=== PATIENT | female | born 1955 | race Caucasian/White ===

== ENCOUNTER 2019-04-01 08:09 | Inpatient (IN) ==
--- NOTE | 2019-03-07 13:44 | PAT Medication Instructions ---
Medication Instructions Date of Service March 07, 2019 Home Medications Calcium, Zinc And Magnesium 1 tab PO QAM Multi Vitamin 1 tab PO QAM apixaban [Eliquis] 5 mg PO BID cetirizine [Zyrtec] 1 tab PO DAILY chlorthalidone 12.5 - 25 mg PO UD escitalopram oxalate [Lexapro] 5 mg PO HS gabapentin 300 mg PO HS lactobacillus combination no.4 1 dose PO TIDM losartan 100 mg PO HS metoprolol succinate [Toprol XL] 12.5 mg PO QAM montelukast [Singulair] 10 mg PO DAILY ASK your prescriber and surgeon apixaban [Eliquis] 5 mg PO BID (IN ORDER FOR SPINAL ANESTHESIA, ELIQUIS NEEDS TO BE STOPPED 72 HOURS/3 DAYS PRIOR TO SURGERY-- PLEASE CHECK IF THIS IS OKAY WITH DOCTOR THAT PRESCRIBES THIS) DO NOT take the morning of surgery Calcium, Zinc And Magnesium 1 tab PO QAM Multi Vitamin 1 tab PO QAM cetirizine [Zyrtec] 1 tab PO DAILY chlorthalidone 12.5 - 25 mg PO UD lactobacillus combination no.4 1 dose PO TIDM montelukast [Singulair] 10 mg PO DAILY Take morning of surgery With a small sip of water, OTHERWISE NOTHING TO EAT OR DRINK AFTER MIDNIGHT: metoprolol succinate [Toprol XL] 12.5 mg PO QAM Take evening before surgery escitalopram oxalate [Lexapro] 5 mg PO HS gabapentin 300 mg PO HS lactobacillus combination no.4 1 dose PO TIDM losartan 100 mg PO HS Other Notes If you have any questions please call us at [phone] or [phone] or [phone] or [phone]
--- NOTE | 2019-03-08 13:30 | Anesthesiology Consultation ---
Date of Service March 08, 2019 Assessment & Plan (1) Encounter for pre-operative examination: - Cardio: 03/23/19: "I see no cardiac contraindication to proceeding on with the planned orthopedic procedure." - Patient advised that in order for spinal anesthesia, will need to hold Eliquis 72 hours prior to surgery (she states already told to hold 72 hours prior to surgery per prescriber/surgeon). - Possible difficult intubation due to anatomy. Chart Review Chart Review: Acceptable Risk for Surgery and Patient seen in Pre Admission Testing Teaching & Discussion Pre-Anesthesia Teaching/Discussion Notes: Instructed NPO after midnight before surgery,except medications with 15 cc of water. Medication instructions provided according to the PAT guidelines. History Surgery Operation Date: 04/01/19 10:20 Proposed Procedures p Left Anterior Total Hip Replacement - Reynaldo Aguilera, Height/Weight Height: 5 ft 4 in Weight: 73.9 kg Allergies Allergy/AdvReac Type Severity Reaction Status Date / Time latex Allergy Unknown RASH, Verified 03/07/19 13:40 PRURITIS Penicillins Allergy Unknown ANAPHYLACTIC Verified 03/01/19 09:50 SHOCK peanut AdvReac Unknown INDEGESTION Verified 03/07/19 13:40 ISSUES perfume AdvReac Unknown Headache Verified 03/07/19 13:40 ENVIRONMENTAL ALLERGIES Allergy Unknown HEADACHE, Uncoded 03/01/19 10:26 "FEEL MISERABLE" MULTIPLE FOOD AdvReac Unknown INDIGESTION Uncoded 03/08/19 13:27 PROBLEMS/GAS/DIARRHEA Medications Home Medications Medication Instructions Recorded Confirmed Last Taken Calcium, Zinc And Magnesium 1 tab PO QAM 03/01/19 03/01/19 03/01/19 Multi Vitamin 1 tab PO QAM 03/01/19 03/01/19 03/01/19 apixaban [Eliquis] 5 mg PO BID 03/01/19 03/01/19 03/01/19 cetirizine [Zyrtec] 1 tab PO DAILY 03/01/19 03/01/19 Unknown chlorthalidone 12.5 - 25 mg PO UD 03/01/19 03/01/19 Unknown escitalopram oxalate [Lexapro] 5 mg PO HS 03/01/19 03/01/19 02/28/19 gabapentin 300 mg PO HS 03/01/19 03/01/19 02/28/19 lactobacillus combination no.4 1 dose PO TIDM 03/01/19 03/01/19 Unknown [Probiotic] losartan 100 mg PO HS 03/01/19 03/01/19 02/28/19 metoprolol succinate [Toprol XL] 12.5 mg PO QAM 03/01/19 03/01/19 03/01/19 montelukast [Singulair] 10 mg PO DAILY 03/01/19 03/01/19 Unknown Past Medical History Medical History DVT (deep venous thrombosis) MULTIPLE; MOST RECENT 2016; + HETEROZYGOUS PROTHROMBIN GENE MUTATION Depression History of pulmonary embolism MULTIPLE; 2016 Hypertension Kidney disease STAGE III Prothrombin gene mutation HETEROZYGOUS Past Family History Family History Mother History of lymphoma Past Surgical History Surgical History History of cardiac cath YEARS AGO= NO STENTS History of colonoscopy History of dilation and curettage History of sinus surgery Past Anesthesia History No Hx of Anesthesia Complications and No Family Hx of Anesthesia Complications History of PONV No Motion Sickness Screening History of Motion Sickness: No Social History Smoking Status: Current every day smoker tobacco type: cigarettes Smoking cigarettes per day: 1PPD X 30+ YEARS Do You Dip or Chew Tobacco: No Hx Alcohol Use: No Hx Substance Use: No substance use type: does not use Exercise / Class Metabolic Activity III < 4 Walking/Shop/Light housework Review of Systems Mild reflux. Patient denies chest pain, shortness of breath, cough, wheezing, palpitations. Physical Exam Vital Signs VITALS BP 120/74 P 65 TEMP 98.7 SP02 96%RA RESP 20 PHYSICAL Full neck and c-spine range of motion. Full TMJ range of motion. TMD 3 finger breaths Mallampati Score 4 (small oral opening) Dentition: intact, caps on sides/molars Lungs: clear throughout to auscultation Cardiac: regular rate and rhythm, no murmurs noted Spine: normal Carotid arteries: negative bruit Extremities: no edema Testing Electrocardiogram Date: 03/08/19 Findings: + NSR @ (64) Chest X-Ray Date: 03/08/19 Findings: + NAD Echocardiogram Date: 03/23/19 Normal left ventricular wall motion and ejection fraction in the range of 55% and trace to mild CA, mild TI. Stress Test Date: 03/23/19 Type: nuclear (LEXISCAN) Normal myocardial perfusion SPECT images without evidence of pharmacologically induced ischemia. LVEF 71%. Laboratory Results 03/08/19 13:50 03/08/19 13:50 PT 10.3 Seconds (9.0-12.0) 03/08/19 13:50 INR 1.0 (0.9-1.1) 03/08/19 13:50 APTT 26.6 Seconds (21.0-31.0) 03/08/19 13:50 Blood Type B Negative 03/08/19 13:50 Antibody Screen NEGATIVE 03/08/19 13:50
--- NOTE | 2019-03-08 14:11 | XRay Report ---
XR chest Pre-admission PA/Lat CLINICAL HISTORY: pat preoperative evaluation COMPARISON STUDY: No previous studies for comparison. FINDINGS: The bones soft tissues and hemidiaphragms are normal. The cardiomediastinal silhouette is n ormal. The lungs are clear. The pulmonary vasculature is normal. IMPRESSION: Negative chest. The above report was generated using voice recognition software. It may contain grammatical, syntax or spelling errors. Electronically signed by: Danyel Eckert M.D. 03/08/2019 2:09 PM
[2019-03-08 14:23] LABS: Basophils # (auto) 0.02 K/uL (0-0.2); Basophils % (auto) 0.4 %; Eosinophils # (auto) 0.15 K/uL (0-0.5); Eosinophils % (auto) 2.6 %; Hematocrit (blood only) 38.1 % (37-47); Hemoglobin 12.9 g/dL (12.0-16.0); Immature Granulocytes # (auto) 0.01 K/uL (0.00-0.02); Immature Granulocytes % (auto) 0.2 %; Lymphocytes # (auto) 2.08 K/uL (1.2-3.4); Lymphocytes % (auto) 36.6 %; Mean Corpuscular Hgb Conc 33.9 g/dL (32-36); Mean Corpuscular Volume 85.4 fL (80-100); Mean Platelet Volume 10.1 fL (7.4-10.4); Monocytes # (auto) 0.37 K/uL (0.11-0.59); Monocytes % (auto) 6.5 %; Neutrophils # (auto) 3.06 K/uL (1.4-6.5); Neutrophils % (auto) 53.7 %; Platelet Count 180 K/uL (130-400); RDW Coefficient of Variation 12.9 % (11.5-14.5); RDW Standard Deviation 40.4 fL (36.4-46.3); Red Blood Count 4.46 M/uL (4.2-5.4); White Blood Count 5.69 K/uL (4.8-10.8)
[2019-03-08 14:35] LABS: Partial Thromboplastin Time 26.6 Seconds (21.0-31.0); Prothrombin Time 10.3 Seconds (9.0-12.0)
[2019-03-08 14:37] LABS: BUN Creatinine Ratio 18.2 (10-20); Calcium 8.9 mg/dl (8.5-10.1); Creatinine Clr Calc Pharmacy 55.1 ml/min; Est GFR (Non-African American) 57.8; Potassium 3.3 mmol/L (3.5-5.1)
--- NOTE | 2019-03-29 15:33 | History & Physical Report ---
Date of Service March 29, 2019 Assessment & Plan (1) Osteoarthritis of left hip: We will proceed with a left anterior total hip arthroplasty. Postoperatively she will be placed back on her Eliquis for DVT prophylaxis. She will be kept overnight in the hospital for postoperative medical management. She plans to use energy physical therapy upon discharge. Present on Admission?: Yes History of Present Illness Chief Complaint: Primary osteoarthritis of the left hip Primary Care Provider: Carlos Ndiaye is a pleasant 63-year-old female who is been dealing with chronic increasing left hip and groin pain. Is getting to the point where she is having trouble ambulating. X-rays and clinical examination do show advanced osteoarthritis of the left hip. After failing conservative treatment, she has elected to proceed with a left anterior total hip arthroplasty. Allergies Allergy/AdvReac Type Severity Reaction Status Date / Time latex Allergy Unknown RASH, Verified 03/07/19 13:40 PRURITIS Penicillins Allergy Unknown ANAPHYLACTIC Verified 03/01/19 09:50 SHOCK peanut AdvReac Unknown INDEGESTION Verified 03/07/19 13:40 ISSUES perfume AdvReac Unknown Headache Verified 03/07/19 13:40 ENVIRONMENTAL ALLERGIES Allergy Unknown HEADACHE, Uncoded 03/01/19 10:26 "FEEL MISERABLE" MULTIPLE FOOD AdvReac Unknown INDIGESTION Uncoded 03/08/19 13:27 PROBLEMS/GAS/DIARRHEA Home Medications Home Medications Medication Instructions Recorded Confirmed Type Calcium, Zinc And Magnesium 1 tab PO QAM 03/01/19 03/01/19 History Multi Vitamin 1 tab PO QAM 03/01/19 03/01/19 History apixaban [Eliquis] 5 mg PO BID 03/01/19 03/01/19 History cetirizine [Zyrtec] 1 tab PO DAILY 03/01/19 03/01/19 History chlorthalidone 12.5 - 25 mg PO UD 03/01/19 03/01/19 History escitalopram oxalate [Lexapro] 5 mg PO HS 03/01/19 03/01/19 History gabapentin 300 mg PO HS 03/01/19 03/01/19 History lactobacillus combination no.4 1 dose PO TIDM 03/01/19 03/01/19 History [Probiotic] losartan 100 mg PO HS 03/01/19 03/01/19 History metoprolol succinate [Toprol XL] 12.5 mg PO QAM 03/01/19 03/01/19 History montelukast [Singulair] 10 mg PO DAILY 03/01/19 03/01/19 History Past Med/Surg History Medical History DVT (deep venous thrombosis) MULTIPLE; MOST RECENT 2016; + HETEROZYGOUS PROTHROMBIN GENE MUTATION Depression History of pulmonary embolism MULTIPLE; 2016 Hypertension Kidney disease STAGE III Prothrombin gene mutation HETEROZYGOUS Surgical History History of cardiac cath YEARS AGO= NO STENTS History of colonoscopy History of dilation and curettage History of sinus surgery Family History Mother History of lymphoma Social History Preferred Language: [place] Communication Ability: Effective Chimney Builder Required: No Beliefs That Will Affect Care: None Current Living Situation: Alone Other Information That Helps Us Care for You: No Feels Safe at Home: Yes Smoking Status: Current every day smoker Tobacco Type: cigarettes Cigarettes Per Day: 1PPD X 30+ YEARS Do You Dip or Chew Tobacco: No Tobacco Cessation Education Requested by Patient: No Hx Alcohol Use: No Hx Substance Use: No Review of Systems All systems reviewed & are unremarkable except as noted in HPI & below Physical Exam Constitutional: WD/WN, vitals as above Eyes: PERRL, conjunctivae normal, anicteric sclerae ENMT: external ear and nose normal, oropharynx normal Neck: trachea midline, no thyromegaly Respiratory: normal respiratory effort Cardiovascular: RRR, no murmur, no edema Gastrointestinal (Abdomen): normal bowel sounds, soft, nontender, no hepatosplenomegaly Musculoskeletal: Physical examination of the left hip reveals decreased range of motion with flexion, internal and external rotation. There is significant groin pain with forced internal rotation of the hip his leg lengths are essentially equal. Psychiatric: A+Ox3, euthymic affect Results & Data Diagnostic Findings Radiographs of the left hip and pelvis demonstrate advanced osteoarthritis with joint space narrowing osteophyte formation and [id number] articulation.
[~2019-04-01 08:09] MED LIST: ACETAMINOPHEN 500 MG TAB PO SCH; BUPIVACAINE 0.5 % 5 MG/1 ML PF 10ML VIAL ONE; FAMOTIDINE 20 MG TAB PO SCH; GABAPENTIN 300 MG x 2 PO SCH; LIDOCAINE HCL 2% 2 ML VIAL/AMP(20MG/ML) INFIL ONE; LR 500ML BOLUS, THEN 15ML/HR IV SCH; LR 60ML/HR IV SCH; MIDAZOLAM HCL 1 MG/ML 2ML VIAL ONE; PROPOFOL IV EMULSION 10 MG/ML 20 ML VIAL IV ONE; ROPIVACAINE 0.5% HCL/PF 150 MG, BUPIVACAINE 0.5% MPF 30 ML, EPINEPHrine 30MG/30ML (OR U... INFIL SCH; TRANEXAMIC ACID 1,000 MG **IV Intra-op IV SCH; TRANEXAMIC ACID 1,000 MG **IV Pre-op IV SCH; VANCOMYCIN HCL 1,000 MG/270 ML BAG IV SCH; fentaNYL citrate 100 MCG/2 ML VIAL ONE
--- OUTSIDE RECORDS SUMMARY | 2019-04-01 08:14 | External Medical Summary | Continuity of Care Document ---
:1955 Author Name Jey Arriaga Address Unavailable Unavailable , Care Team Providers Name Role Phone Wolfgang YEBOAH M.D., PDoyle Unavailable [email or web address] Unavailable Unavailable Assessments Assessed Problems:Cervical radiculopathyUlnar neuropathy of both upper extremitiesCarpal tunnel syndrome, bilateral Problems Cervical radiculopathy (723.4) (M54.12) Ulnar neuropathy of both upper extremities (354.2) (G56.23) Carpal tunnel syndrome, bilateral (354.0) (G56.03) Allergies and Adverse Reactions Allergy history not documented Medications Medications not documented Procedures Procedures not documented Immunizations Immunizations not documented Plan of Treatment Planned Observations Planned Goals not documented Results No Known Results Results not documented Encounters Appointment; Jaylen Goss III, M.D. 22-Apr-2018 16:00 Encounter Diagnosis: Problem not documented
[2019-04-01] MEDS ORDERED: ATROPINE SULFATE 0.1 MG/ML 10ML SYR IV PRN (08:39)
[2019-04-01] MEDS ORDERED: ONDANSETRON INJ 2 MG/ML 2 ML VIAL IV PRN ×2 (08:39→13:24)
[2019-04-01] MEDS ORDERED: PHENYLEPHRINE 100MCG/ML 5ML SYR IV PRN (08:39)
[2019-04-01] MEDS ORDERED: PROMETHAZINE HCL 12.5 MG in SODIUM CHLORIDE 0.9% 50 ML IV PRN (08:39)
[2019-04-01] MEDS ORDERED: HYDROmorphone INJ 1 MG/ML SYRINGE IV PRN (08:39)
[2019-04-01] MEDS ORDERED: fentaNYL citrate 100 MCG/2 ML VIAL IV PRN (08:39)
[2019-04-01] MEDS ORDERED: ePHEDrine sulfate 50 MG/ML AMP IV PRN (08:39)
--- NOTE | 2019-04-01 08:41 | History & Physical Bridge Note ---
Date of Service April 01, 2019 History & Physical Bridge Note I have examined the patient, reviewed the History & Physical and in the interval since the performance of the History & Physical I have noted the following changes of clinical significance: no changes noted
[2019-04-01] MEDS ORDERED: ORTHO JOINT ANESTHETIC ONE (09:00)
[2019-04-01] MEDS ORDERED: POVIDONE-IODINE OP SOLN 30 ML BTL ONE (09:01)
[2019-04-01] MEDS ORDERED: ONDANSETRON INJ 2 MG/ML 2 ML VIAL ONE (10:17)
--- NOTE | 2019-04-01 11:39 | Operative Report ---
Post Operative Report Pre & Post Diagnosis Operation Date: 04/01/19 10:20 Pre-Op Diagnosis: Left Hip Degenerative Joint Disease Post-Op Diagnosis: Left Hip Degenerative Joint Disease Procedure Operation Date: 04/01/19 10:20 Actual Procedures p Left Anterior Total Hip Replacement(Left) - Reynaldo Aguilera DO Surgeon Reynaldo Aguilera DO B[employer]er Operators Supervisor Reynaldo Huang PAC Estimated Blood Loss 200 Findings Consistent with Post-Op Diagnosis Specimens Left femoral head Complications none Disposition Disposition: Recovery Room Indications Patient is a pleasant 63-year-old female who presented my office with chronic increasing left hip and groin pain. X-rays and clinical examination have been diagnostic for primary also arthritis of the left hip. After failing conservative treatment, she elected proceed with a left anterior total hip arthroplasty. Description of Procedure Implants used Biomet Taperloc total hip arthroplasty system with a size 11 standard offset Taperloc stem, a 52 mm G7 cup with a 25mm screw, an E1 polyethylene liner, a 36 mm ceramic head with a -3 neck. Patient arrived at the hospital for the above procedure. They were seen in the preoperative holding area and the operative extremity was identified and signed. They were given a spinal anesthetic. They were given a preoperative antibiotic and TXA. They were taken back To the operating room and laid on the table in the supine position. The leg was brought out through a Puristst leg positioner. The hip was then prepped and draped in sterile fashion. A timeout was done and the patient in upper extremities properly identified. An anterior approach was used. Dissection was taken down through the fascia and the tensor muscle belly was retracted laterally and the rectus was retracted medially. The circumflex vessels were identified and ligated. The capsule was then incised and tagged for later repair. The femoral neck was then cut and the femoral head was removed. The acetabulum was exposed. Time was spent doing a complete circumferential labral release. Sequential reaming of the acetabulum up to a size 51 reamer was done. Final reamings were done under fluoroscopy to ensure appropriate version. A Biomet 52 mm G7 cup was then impacted into place. A single 25 mm screw was placed. The E1 polyethylene liner was then snapped into place. Surrounding soft tissues were then injected with 100 cc of an orthopedic pain control cocktail. The proximal femur was then exposed. Sequential broaching up to a size 11 broach was done. Off that broach a size 36 head with a -3 neck was trialed. The hip was reduced and fluoroscopic images showed anatomic alignment of the implants in acceptable length. The broach was removed. The final size 11 standard offset Taperloc stem was then impacted into place. A ceramic 36 mm head with a -3 neck was then impacted into place in the hip was reduced. Final fluoroscopic images showed anatomic reduction of the hip. The capsule was then closed with #1 Vicryl suture. A dilute betadyne lavage was then done for 3 minutes. The joint was then irrigated with normal saline solution. The fascia was closed with #1 PDS suture. Skin was closed with 2-0 Vicryl, kashif, and a Jeane VAC dressing. The patient was then transferred to a hospital bed and taken to the post anesthesia care unit in stable condition. They tolerated the procedure well. I attest to the content of the Intraoperative Record and any orders documented therein. Any exceptions are noted below.
--- NOTE | 2019-04-01 11:44 | Fluoroscopy Report ---
FL hip LT 1V CLINICAL HISTORY: 63 years-old Female presenting with LT ANTERIOR HIP ARTHOPLASTY. TECHNIQUE: 2 fluoroscopic image(s) recorded as part of an intraoperative procedure. COMPARISON: 01/21/2019. FINDINGS/IMPRESSION: Postsurgical changes of total left hip arthroplasty new from prior. Please see surgical report for further details. Fluoroscopy dosage (mGy): 3.13. Fluoroscopy time: 30.8 seconds. Number or time of high level fluoroscopy (HLF), digital spot, or digital subtraction images: 0. Electronically signed by: Jay Gorman M.D. 04/01/2019 11:43 AM
--- NOTE | 2019-04-01 12:28 | XRay Report ---
XR hip 1V LT w pelvis CLINICAL HISTORY: IN PACU - A/P PELVIS and LATERAL HIP COMPARISON: None. DISCUSSION: Anatomic alignment post total left hip arthroplasty. Expected soft tissue postoperative c hange IMPRESSION: Anatomic alignment post total left hip arthroplasty. The above report was generated using voice recognition software. It may contain grammatical, syntax or spelling errors. Electronically signed by: Danyel Eckert M.D. 04/01/2019 12:26 PM
--- NOTE | 2019-04-01 12:59 | Anesthesiology Progress Note ---
Date of Service April 01, 2019 Anesthesia Post Procedure Vital Signs Vital Signs: Temp Pulse Pulse Resp BP Pulse Ox 04/01/19 12:50 36.5 C 58 L 13 108/61 98 04/01/19 12:40 36.5 C 59 L 15 117/65 98 04/01/19 12:30 59 L 19 118/58 L 98 04/01/19 12:20 57 L 18 123/65 100 04/01/19 12:10 61 17 114/67 100 04/01/19 12:00 57 L 15 111/65 100 04/01/19 11:53 36.4 C L 60 17 112/60 99 04/01/19 08:57 36.6 C 65 20 135/77 97 Pain Intensity Left Hip: Pain Intensity: 0 Transfer of Care Handoff Completed per policy Notes Mental Status: alert / awake / arousable Patient Amnestic to Procedure: Yes Nausea / Vomiting: adequately controlled Pain: adequately controlled Airway Patency, RR, SpO2: stable & adequate BP & HR: stable & adequate Neuraxial Anesthesia: was administered and sensory block is resolving Anesthetic Complications: no major complications apparent
[2019-04-01] MEDS ORDERED: MAGNESIUM HYDROXIDE SUSP 30 ML UDC PO PRN (13:24)
[2019-04-01] MEDS ORDERED: METOCLOPRAMIDE HCL INJ 5 MG/ML 2 ML VIAL IV PRN (13:24)
[2019-04-01] MEDS ORDERED: BISACODYL 10 MG SUPP PR PRN (13:24)
[2019-04-01] MEDS ORDERED: OXYCODONE HCL IR 5 MG TAB (IMMEDIATE RELEASE) PO PRN (13:24)
[2019-04-01] MEDS ORDERED: HYDROmorphone INJ 0.5 MG/0.5 ML SYR IV PRN (13:24)
[2019-04-01] MEDS ORDERED: NALOXONE HCL 0.4 MG/1 ML VIAL/CARP IV PRN (13:24)
[2019-04-01] MEDS ORDERED: SODIUM CHLORIDE 0.9% 1000ML 1,000 ML IV SCH (14:15)
[2019-04-01] MEDS: ACETAMINOPHEN 500 MG TAB PO SCH ×2 (16:16→23:04)
[2019-04-01] MEDS: CLINDAMYCIN 600 MG in DEXTROSE 5% 50 ML IV SCH ×2 (16:24→23:04)
[2019-04-01] MEDS: DOCUSATE SODIUM 100 MG CAP PO SCH (19:46)
[2019-04-01] MEDS ORDERED: NICOTINE 21 MG/24 HR TDSY TD SCH (20:00)
[2019-04-01] MEDS ORDERED: VANCOMYCIN HCL 1,000 MG in SODIUM CHLORIDE 0.9% 250 ML IV SCH (20:00)
[2019-04-01] MEDS ORDERED: MONTELUKAST SODIUM 10 MG TABLET PO SCH (21:00)
[2019-04-01] MEDS ORDERED: APIXABAN 5 MG TABLET PO SCH (21:00)
[2019-04-01] MEDS ORDERED: SENNA 8.6 MG TAB PO SCH (21:00)
[2019-04-01] MEDS ORDERED: GABAPENTIN 300 MG CAP PO SCH (21:00)
[2019-04-01] MEDS ORDERED: LOSARTAN POTASSIUM 50 MG TAB PO SCH (21:00)
[2019-04-01] MEDS ORDERED: ESCITALOPRAM OXALATE 10 MG TAB PO SCH (21:00)
[2019-04-02] MEDS ORDERED: Nursing to Pharmacy Communication ONE (05:32)
[2019-04-02] MEDS: ACETAMINOPHEN 500 MG TAB PO SCH (06:26)
[2019-04-02 06:35] LABS: Basophils # (auto) 0.01 K/uL (0-0.2); Basophils % (auto) 0.1 %; Eosinophils # (auto) 0.01 K/uL (0-0.5); Eosinophils % (auto) 0.1 %; Hematocrit (blood only) 32.8 % (37-47); Immature Granulocytes # (auto) 0.02 K/uL (0.00-0.02); Immature Granulocytes % (auto) 0.2 %; Lymphocytes # (auto) 1.51 K/uL (1.2-3.4); Lymphocytes % (auto) 15.9 %; Mean Corpuscular Hgb Conc 33.5 g/dL (32-36); Mean Corpuscular Volume 85.6 fL (80-100); Monocytes # (auto) 0.72 K/uL (0.11-0.59); Monocytes % (auto) 7.6 %; Neutrophils # (auto) 7.23 K/uL (1.4-6.5); Neutrophils % (auto) 76.1 %; Platelet Count 123 K/uL (130-400); RDW Coefficient of Variation 12.9 % (11.5-14.5); RDW Standard Deviation 40.3 fL (36.4-46.3); Red Blood Count 3.83 M/uL (4.2-5.4)
[2019-04-02 07:07] LABS: BUN Creatinine Ratio 20.8 (10-20); Calcium 8.2 mg/dl (8.5-10.1); Creatinine Clr Calc Pharmacy 39.7 ml/min; Est GFR (African American) 45.1; Est GFR (Non-African American) 38.9; Potassium 3.6 mmol/L (3.5-5.1)
--- NOTE | 2019-04-02 07:18 | Orthopedic Progress Note ---
Date of Service April 02, 2019 Assessment & Plan (1) Osteoarthritis of left hip: Overall she is doing very well. She does not have much pain in the hip. She will be seen by physical therapy this morning for ambulation and range of motion exercises. She is stable for discharge to home later today. She plans to use energy physical therapy when she gets home. Her son is going to be staying with her to help take care of her. Will use oxycodone as needed for pain control. She will continue her Eliquis for DVT prophylaxis. She will follow-up with orthopedics in 2 weeks. Present on Admission?: Yes Subjective Zelda was seen and examined at bedside this morning. Overall she is doing very well. She is not having much pain in the left hip. She is been up and ambulating to the bathroom. She has no complaints. Physical Exam Musculoskeletal: On physical examination of the left hip, the Jeane VAC dressing is to suction. Her leg lengths are equal. She is active dorsiflexion and plantarflexion of her left ankle. Sensations intact throughout. Results & Data Vital Signs (Past 12 Hours) Vital Signs Temp Pulse Pulse Resp BP Pulse Ox 04/02/19 03:54 36.5 C 62 14 116/64 96 04/01/19 23:05 36.6 C 68 16 118/63 93 04/01/19 19:45 64 103/59 L 04/01/19 19:26 36.3 C L 65 18 110/57 L 95 Laboratory Results H & H 03/08/19 04/02/19 Range/Units 13:50 06:26 Hgb 12.9 11.0 L (12.0-16.0) g/dL Hct 38.1 32.8 L (37-47) % Coagulation 03/08/19 Range/Units 13:50 INR 1.0 (0.9-1.1) Diagnostic Findings Postoperative x-rays of the left hip show the prosthesis to be in anatomic alignment without any evidence of fracture, dislocation, or loosening.
--- NOTE | 2019-04-02 07:19 | Discharge Summary ---
Date of Service April 02, 2019 Admission HPI Per Admitting Provider Zelda is a pleasant 63-year-old female who is been dealing with chronic increasing left hip and groin pain. Is getting to the point where she is having trouble ambulating. X-rays and clinical examination do show advanced osteoarthritis of the left hip. After failing conservative treatment, she has elected to proceed with a left anterior total hip arthroplasty. Specialty Data Orthopedic H & H 03/08/19 04/02/19 Range/Units 13:50 06:26 Hgb 12.9 11.0 L (12.0-16.0) g/dL Hct 38.1 32.8 L (37-47) % Coagulation 03/08/19 Range/Units 13:50 INR 1.0 (0.9-1.1) Discharge Data Consultations 04/02/19 08:00 Consult Case Management - Discharge Planning Routine Procedures Performed Operation Date: 04/01/19 10:20 Actual Procedures p Left Anterior Total Hip Replacement(Left) - Reynaldo Aguilera DO Hospital Course (1) Osteoarthritis of left hip: On April 01, 2019 Zelda arrived at [facility] and underwent a left anterior total hip arthroplasty without complication. She had a spinal anesthetic. Postoperatively she was started back on her Eliquis for DVT prophylaxis and discharged to general orthopedic floors. Her hospital course was uneventful. On postop day #1 her H&H was stable and her pain was well controlled. She was able to ambulate well with physical therapy. She was then discharged to home with [facility]. She will follow-up with orthopedics in 2 weeks. Discharge Instructions Home Medications Medication Instructions Recorded Confirmed Calcium, Zinc And Magnesium 1 tab PO QAM 03/01/19 04/01/19 Multi Vitamin 1 tab PO QAM 03/01/19 04/01/19 apixaban [Eliquis] 5 mg PO BID 03/01/19 04/01/19 cetirizine [Zyrtec] 1 tab PO DAILY 03/01/19 04/01/19 chlorthalidone 12.5 - 25 mg PO UD 03/01/19 04/01/19 escitalopram oxalate [Lexapro] 5 mg PO HS 03/01/19 04/01/19 gabapentin 300 mg PO HS 03/01/19 04/01/19 lactobacillus combination no.4 1 dose PO TIDM 03/01/19 04/01/19 [Probiotic] losartan 100 mg PO HS 03/01/19 04/01/19 metoprolol succinate [Toprol XL] 12.5 mg PO QAM 03/01/19 04/01/19 montelukast [Singulair] 10 mg PO DAILY 03/01/19 04/01/19 Previous Rx's Medication Instructions Recorded oxycodone 5 - 10 mg PO Q4H PRN #20 tab 04/02/19
--- NOTE | 2019-04-02 08:23 | Anesthesiology Progress Note ---
Date of Service April 02, 2019 Anesthesia Post Procedure Vital Signs Vital Signs: Temp Pulse Pulse Pulse Resp BP Pulse Ox 04/02/19 07:26 36.5 C 67 17 105/66 94 04/02/19 03:54 36.5 C 62 14 116/64 96 04/01/19 23:05 36.6 C 68 16 118/63 93 04/01/19 19:45 64 103/59 L 04/01/19 19:26 36.3 C L 65 18 110/57 L 95 04/01/19 16:17 64 16 108/68 97 04/01/19 15:16 36.7 C 66 18 110/64 98 04/01/19 14:04 36.7 C 64 16 116/77 97 04/01/19 13:35 61 16 123/71 97 04/01/19 13:05 36.4 C L 67 16 118/64 96 04/01/19 12:50 36.5 C 58 L 13 108/61 98 04/01/19 12:40 36.5 C 59 L 15 117/65 98 04/01/19 12:30 59 L 19 118/58 L 98 04/01/19 12:20 57 L 18 123/65 100 04/01/19 12:10 61 17 114/67 100 04/01/19 12:00 57 L 15 111/65 100 04/01/19 11:53 36.4 C L 60 17 112/60 99 04/01/19 08:57 36.6 C 65 20 135/77 97 Pain Intensity Left Hip: Pain Intensity: 0 Transfer of Care Handoff Completed per policy Notes Mental Status: alert / awake / arousable Patient Amnestic to Procedure: Yes Nausea / Vomiting: adequately controlled Pain: adequately controlled Airway Patency, RR, SpO2: stable & adequate BP & HR: stable & adequate Neuraxial Anesthesia: was administered and sensory block is resolving Anesthetic Complications: no major complications apparent Notes: POD #1. Doing well, has been OOB and tolerating PO well. No complaints. VSS
[2019-04-02] MEDS ORDERED: APIXABAN 5 MG TABLET PO SCH (09:00)
[2019-04-02] MEDS ORDERED: ACETAMINOPHEN 500 MG TAB PO SCH (09:00)
[2019-04-02] MEDS ORDERED: CHLORTHALIDONE 25 MG TAB PO SCH (09:00)
[2019-04-02] MEDS ORDERED: METOPROLOL SUCC 25MG EXT REL TAB PO SCH (09:00)
[2019-04-02] MEDS ORDERED: CETIRIZINE HCL 10 MG TABLET PO SCH (09:00)
[2019-04-02] MEDS ORDERED: MULTIVITAMIN TAB PO SCH (09:00)
[2019-04-02] MEDS: DOCUSATE SODIUM 100 MG CAP PO SCH (09:07)
[2019-04-04] MEDS ORDERED: CHLORTHALIDONE 25 MG TAB PO SCH (09:00)
== END 2019-04-02 14:31 | disposition home health service (06) | DRG 470 ==
LOC: ASU 08:09 → 3E 11:57

== ENCOUNTER 2024-03-21 08:36 | Observation (INO) ==
--- NOTE | 2024-02-16 11:58 | PAT Medication Instructions ---
Medication Instructions Date of Service February 16, 2024 Home Medications Multi Vitamin 1 tab PO QAM apixaban 5 mg tablet (Eliquis) 5 mg PO BID chlorthalidone 25 mg tablet 12.5 mg PO QAM escitalopram oxalate 5 mg tablet (Lexapro) 2.5 mg PO HS gabapentin 300 mg capsule 300 mg PO HS losartan 100 mg tablet 100 mg PO QAM metoprolol succinate 25 mg tablet,extended release 24 hr (Toprol XL) 12.5 mg PO QAM atorvastatin 40 mg tablet (Lipitor) 40 mg PO DAILY calcitriol 0.25 mcg capsule 0.25 mcg PO Q OTHER DAY pantoprazole 40 mg tablet,delayed release (Protonix) 40 mg PO QAM potassium chloride 10 mEq capsule,extended release 10 meq PO QAM ASK your prescriber and surgeon apixaban 5 mg tablet (Eliquis) 5 mg PO BID (From anesthesia perspective, Apixaban/Eliquis needs to be stopped 72 hours before surgery. Please check if okay with doctor that prescribes this to you) DO NOT take the morning of surgery Multi Vitamin 1 tab PO QAM chlorthalidone 25 mg tablet 12.5 mg PO QAM losartan 100 mg tablet 100 mg PO QAM calcitriol 0.25 mcg capsule 0.25 mcg PO Q OTHER DAY potassium chloride 10 mEq capsule,extended release 10 meq PO QAM Take morning of surgery With a small sip of water, OTHERWISE NOTHING TO EAT OR DRINK AFTER MIDNIGHT: metoprolol succinate 25 mg tablet,extended release 24 hr (Toprol XL) 12.5 mg PO QAM atorvastatin 40 mg tablet (Lipitor) 40 mg PO DAILY pantoprazole 40 mg tablet,delayed release (Protonix) 40 mg PO QAM Take evening before surgery escitalopram oxalate 5 mg tablet (Lexapro) 2.5 mg PO HS gabapentin 300 mg capsule 300 mg PO HS Other Notes If you have any questions please call us at [phone] or [phone] or [phone] or [phone]
--- NOTE | 2024-02-19 15:02 | Anesthesiology Consultation ---
Date of Service February 19, 2024 Assessment & Plan (1) Encounter for pre-operative examination: - Infectious disease screening: Per assessment on 02/19/24: No known infectious disease contacts or current infectious disease symptoms. No noted recent Covid positive test result. - Outpatient joint assessment: Pt currently scheduled for inpatient pathway. If surgeon requests review for outpatient joint pathway, patient is not recommended candidate for outpatient joint program from anesthesia standpoint. - Eliquis instructions: patient made aware that for neuraxial anesthesia, Eliquis needs to be held 72 hours prior to surgery. Patient voiced understanding/will check if okay with prescriber. - Patient concern: Patient had awareness and "heard sawing" with left GURU (done 2018)- concerned with having similar experience for upcoming right GURU - S/P Left anterior GURU (04/01/19): SAB at L3-4, x1 attempt at [facility] Chart Review Chart Review: Acceptable Risk for Surgery and Patient seen in Pre Admission Testing Teaching & Discussion Pre-Anesthesia Teaching/Discussion Notes: Instructed NPO after midnight before surgery,except medications with 15 cc of water. Medication instructions provided according to the PAT guidelines. History Surgery Operation Date: 03/21/24 11:00 Proposed Procedures p Right Total Hip Arthroplasty Anterior - Reynaldo Aguilera, Height/Weight Height: 5 ft 4 in Weight: 73.6 kg Allergies Allergy/AdvReac Type Severity Reaction Status Date / Time latex Allergy Unknown Rash Verified 02/12/24 10:44 Penicillins Allergy Unknown Anaphylactic Verified 02/19/24 08:42 shock peanut AdvReac Unknown Indigestion Verified 02/19/24 08:42 issues milk AdvReac Abdominal Verified 02/12/24 10:44 Pain ENVIRONMENTAL ALLERGIES Allergy Unknown Headache, Uncoded 02/19/24 08:42 "miserable" feeling MULTIPLE FOOD AdvReac Unknown Gas, Uncoded 02/19/24 08:42 diarrhea, indigestion issues hamburger AdvReac Abdominal Uncoded 02/12/24 10:44 Pain Medications Home Medications Medication Instructions Recorded Confirmed Last Taken Multi Vitamin 1 tab PO QAM 03/01/19 02/12/24 03/31/19 07:00 apixaban 5 mg tablet (Eliquis) 5 mg PO BID 03/01/19 02/12/24 03/28/19 22:00 chlorthalidone 25 mg tablet 12.5 mg PO QAM 03/01/19 02/12/24 03/31/19 07:00 escitalopram oxalate 5 mg tablet 2.5 mg PO HS 03/01/19 02/12/24 03/31/19 22:00 (Lexapro) gabapentin 300 mg capsule 300 mg PO HS 03/01/19 02/12/24 03/31/19 22:00 losartan 100 mg tablet 100 mg PO QAM 03/01/19 02/12/24 03/31/19 22:00 metoprolol succinate 25 mg 12.5 mg PO QAM 03/01/19 02/12/24 04/01/19 07:00 tablet,extended release 24 hr (Toprol XL) atorvastatin 40 mg tablet (Lipitor) 40 mg PO DAILY 02/27/22 02/12/24 Unknown calcitriol 0.25 mcg capsule 0.25 mcg PO Q OTHER DAY 02/27/22 02/12/24 Unknown pantoprazole 40 mg tablet,delayed 40 mg PO QAM 02/27/22 02/12/24 Unknown release (Protonix) potassium chloride 10 mEq 10 meq PO QAM 02/27/22 02/12/24 Unknown capsule,extended release Past Medical History Medical History Bunion, right foot Degenerative disc disease Depression DVT (deep venous thrombosis) Multiple, most recent 2016 + Heterozygous prothrombin gene mutation Hammertoe of right foot History of pulmonary embolism Multiple, 2016 Taking Eliquis Hyperlipidemia Hypertension Kidney disease CKD Stage III MVP (mitral valve prolapse) Echo 2019: Mild [place] Osteoarthritis Prothrombin gene mutation Heterozygous Exercise / Class Metabolic Activity III < 4 Walking/Shop/Light housework (one FS: No CP, + SOB) Past Family History Family History Mother History of lymphoma Past Surgical History Surgical History History of cardiac cath 2005- "Normal left heart catheterization on 07/01/2006" per cardio records History of colonoscopy History of dilation and curettage History of sinus surgery History of tonsillectomy History of tooth extraction History of total hip arthroplasty Left anterior GURU (04/01/19): SAB at L3-4, x1 attempt at [facility] Past Anesthesia History No Family Hx of Anesthesia Complications and Other (Patient had awareness and "heard sawing" with left GURU (done 2019)- concerned with having similar experience for upcoming right GURU) Social History Smoking Status: Current every day smoker tobacco type: cigarettes Smoking cigarettes per day: 1 PPD Do You Dip or Chew Tobacco: No Hx Alcohol Use: No Hx Substance Use: No substance use type: does not use Review of Systems Patient denies chest pain, shortness of breath, reflux, cough, wheezing, palpitations. Physical Exam Vital Signs BP 129/72 P 72 TEMP 98.8 SP02 96%RA RESP 18 Physical Full cervical extension range of motion. Full TMJ range of motion. TMD 3 finger breaths Mallampati Score 3 Dentition: + missing (molars), + caps (molars), + bridge (molars) Lungs: clear throughout to auscultation Cardiac: regular rate and rhythm, no murmurs noted Spine: normal Carotid arteries: negative bruit Extremities: no LE edema Lab Results Anesthesia Preop Results Results Anesthesia Widget: PT 11.0 Seconds (9.0-12.0) 02/19/24 PTT 27 Seconds (21-31) 02/19/24 INR 1.0 (0.9-1.1) 02/19/24 Blood Type B Negative 02/19/24 Antibody Screen NEGATIVE 02/19/24 Testing Laboratory Results 01/29/24 WBC 6.18 H/H 12.8/40.0 PLATELETS 207 SODIUM 137 POTASSIUM 3.6 CHLORIDE 104 CO2 28.3 BUN 24.0 CREATININE 1.35 GLUCOSE 104 FREE T4 1.19 TSH 1.980 Electrocardiogram Date: 02/19/24 NSR at 71bpm. "Normal ECG" Chest X-Ray Date: 02/19/24 FINDINGS: Lung volumes are normal. Lungs are clear. There is no pneumothorax or pleural effusion. Cardiac size is normal. Mediastinal contours are normal. There is no evidence for pulmonary edema. IMPRESSION: No acute cardiopulmonary findings.
--- NOTE | 2024-03-17 12:26 | History & Physical Report ---
Date of Service March 17, 2024 Assessment & Plan (1) Osteoarthritis of right hip: We will proceed with a right anterior total of arthroplasty. Postoperatively she will be started on Eliquis for DVT prophylaxis and kept overnight in the hospital for postop medical management. She plans to use energy physical the rapy for discharge. History of Present Illness Chief Complaint: Osteoarthritis of the right hip. Primary Care Provider: Mitra Ndiaye is a pleasant 68-year-old female who has been dealing with chronic increasing right hip pain. I did a left hip replacement on her in the past and she has done very well with that. Unfortunately, she is struggling with her right hip. It is causing her significant groin pain. X-rays and clinical examination been diagnostic for advanced arthritis of the right hip. After failing conservative treatment, she has elected proceed with a right total hip arthroplasty. Allergies Allergy/AdvReac Type Severity Reaction Status Date / Time latex Allergy Unknown Rash Verified 02/12/24 10:44 Penicillins Allergy Unknown Anaphylactic Verified 02/19/24 08:42 shock peanut AdvReac Unknown Indigestion Verified 02/19/24 08:42 issues milk AdvReac Abdominal Verified 02/12/24 10:44 Pain ENVIRONMENTAL ALLERGIES Allergy Unknown Headache, Uncoded 02/19/24 08:42 "miserable" feeling MULTIPLE FOOD AdvReac Unknown Gas, Uncoded 02/19/24 08:42 diarrhea, indigestion issues hamburger AdvReac Abdominal Uncoded 02/12/24 10:44 Pain Home Medications Medication Instructions Recorded Confirmed Type Multi Vitamin 1 tab PO QAM 03/01/19 02/12/24 History apixaban 5 mg tablet (Eliquis) 5 mg PO BID 03/01/19 02/12/24 History chlorthalidone 25 mg tablet 12.5 mg PO QAM 03/01/19 02/12/24 History escitalopram oxalate 5 mg tablet 2.5 mg PO HS 03/01/19 02/12/24 History (Lexapro) gabapentin 300 mg capsule 300 mg PO HS 03/01/19 02/12/24 History losartan 100 mg tablet 100 mg PO QAM 03/01/19 02/12/24 History metoprolol succinate 25 mg 12.5 mg PO QAM 03/01/19 02/12/24 History tablet,extended release 24 hr (Toprol XL) atorvastatin 40 mg tablet (Lipitor) 40 mg PO DAILY 02/27/22 02/12/24 History calcitriol 0.25 mcg capsule 0.25 mcg PO Q OTHER DAY 02/27/22 02/12/24 History pantoprazole 40 mg tablet,delayed 40 mg PO QAM 02/27/22 02/12/24 History release (Protonix) potassium chloride 10 mEq 10 meq PO QAM 02/27/22 02/12/24 History capsule,extended release Past Med/Surg History Medical History Osteoarthritis Degenerative disc disease Hyperlipidemia MVP (mitral valve prolapse) Echo 2019: Mild [place] Hammertoe of right foot Bunion, right foot History of pulmonary embolism Multiple, 2016 Taking Eliquis DVT (deep venous thrombosis) Multiple, most recent 2016 + Heterozygous prothrombin gene mutation Kidney disease CKD Stage III Depression Prothrombin gene mutation Heterozygous Hypertension Surgical History History of tooth extraction History of tonsillectomy History of total hip arthroplasty Left anterior GURU (04/01/19): SAB at L3-4, x1 attempt at [facility] History of cardiac cath 2006- "Normal left heart catheterization on 07/01/2006" per cardio records History of colonoscopy History of dilation and curettage History of sinus surgery Family History Mother History of lymphoma Social History Smoking Status: Current every day smoker Tobacco Type: Cigarettes Cigarettes Per Day: 1 PPD; Second Hand Exposure: No; Do You Dip or Chew Tobacco: No; Hx Alcohol Use: No Hx Substance Use: No Preferred Language: Barbadian Communication Ability: Effective 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 Physical Exam On physical examination of the right hip, she has decreased range of motion. She has pain with internal and external rotation. All of her pains located in her groin.. Constitutional WD/WN, vitals as above Eyes PERRL, conjunctivae normal, anicteric sclerae ENMT external ear and nose normal, oropharynx normal Neck trachea midline, no thyromegaly Respiratory normal respiratory effort Cardiovascular RRR, no murmur, no edema Gastrointestinal (Abdomen) normal bowel sounds, soft, nontender, no hepatosplenomegaly Psychiatric A+Ox3, euthymic affect Results & Data Results & Data Laboratory Results . Diagnostic Findings X-rays of the right hip show advanced osteoarthritis with joint space narrowing, osteophyte formation, and [id number] tubulation. PG Care Time/CCT Total # of Minutes Spent Total Time Spent with Patient: Total time spent is greater than 50% in coordination of care (as documented) at patient's floor/unit and/or counseling patient: Coding Level of Care Code None Diagnoses Osteoarthritis of right hip M16.11
--- NOTE | 2024-03-21 08:04 | History & Physical Bridge Note ---
Date of Service March 21, 2024 History & Physical Bridge Note I have examined the patient, reviewed the History & Physical and in the interval since the performance of the History & Physical I have noted the following changes of clinical significance: no changes noted
[~2024-03-21 08:36] MED LIST changes: -ACETAMINOPHEN 500 MG TAB PO SCH; +ALLERGY Noted to ORDERED Medication SCH; -BUPIVACAINE 0.5 % 5 MG/1 ML PF 10ML VIAL ONE; -FAMOTIDINE 20 MG TAB PO SCH; -GABAPENTIN 300 MG x 2 PO SCH; +LIDOCAINE 2% 2 ML VIAL/AMP(20MG/ML) INFIL ONE; -LIDOCAINE HCL 2% 2 ML VIAL/AMP(20MG/ML) INFIL ONE; -LR 500ML BOLUS, THEN 15ML/HR IV SCH; -LR 60ML/HR IV SCH; +ONDANSETRON INJ 2 MG/ML 2 ML VIAL ONE; +ROPIVACAINE 0.5% 5 MG/ML 30 ML VIAL ONE; -ROPIVACAINE 0.5% HCL/PF 150 MG, BUPIVACAINE 0.5% MPF 30 ML, EPINEPHrine 30MG/30ML (OR U... INFIL SCH; -TRANEXAMIC ACID 1,000 MG **IV Intra-op IV SCH; -TRANEXAMIC ACID 1,000 MG **IV Pre-op IV SCH; -VANCOMYCIN HCL 1,000 MG/270 ML BAG IV SCH; -fentaNYL citrate 100 MCG/2 ML VIAL ONE
[2024-03-21] MEDS: LR 500ML BOLUS, THEN 15ML/HR IV SCH (09:14)
[2024-03-21] MEDS: dexAMETHasone**PF** 10 MG/ML VIAL IV SCH (09:15)
[2024-03-21] MEDS: ACETAMINOPHEN 500 MG TAB PO SCH ×2 (09:15→14:45)
[2024-03-21] MEDS: GABAPENTIN 300 MG CAP PO SCH ×2 (09:16→21:06)
[2024-03-21] MEDS: FAMOTIDINE 20 MG TAB PO SCH (09:16)
[2024-03-21] MEDS: LR 60ML/HR IV SCH (09:17)
[2024-03-21] MEDS ORDERED: fentaNYL citrate PF 100 MCG/2 ML VIAL IV PRN (09:18)
[2024-03-21] MEDS ORDERED: ONDANSETRON INJ 2 MG/ML 2 ML VIAL IV PRN ×2 (09:18→12:05)
[2024-03-21] MEDS ORDERED: ePHEDrine sulfate 50 MG/ML AMP IV PRN (09:18)
[2024-03-21] MEDS ORDERED: HYDROmorphone INJ 1 MG/ML SYRINGE IV PRN (09:18)
[2024-03-21] MEDS ORDERED: ATROPINE SULFATE 0.1 MG/ML 10ML SYR IV PRN (09:18)
[2024-03-21] MEDS: TRANEXAMIC ACID 1,000 MG **IV Pre-op IV SCH (09:27)
[2024-03-21] MEDS ORDERED: Nursing to Pharmacy Communication SCH (09:30)
[2024-03-21] MEDS: ceFAZolin 2000MG 2,000 MG/15 ML SYR IV SCH ×2 (09:37→17:42)
[2024-03-21] MEDS ORDERED: ALBUTEROL HFA 8 GM INHALER INH ONE (09:43)
[2024-03-21] MEDS ORDERED: fentaNYL citrate PF 100 MCG/2 ML VIAL ONE (09:54)
[2024-03-21] MEDS ORDERED: KETAMINE HCL INJ 50 MG/ML 10 ML VIAL ONE (09:56)
[2024-03-21] MEDS: ORTHO JOINT ANESTHETIC ONE (10:06)
[2024-03-21] MEDS: ROPIV 0.5% 246mg, Ketorolac 30mg, EPINEPHrine 0.5mg in NSS INFIL SCH (10:06)
[2024-03-21] MEDS ORDERED: ePHEDrine sulfate 50 MG/5 ML SYR ONE (10:18)
[2024-03-21] MEDS: TRANEXAMIC ACID 1,000 MG **IV Intra-op IV SCH (10:30)
--- NOTE | 2024-03-21 10:32 | Operative Report ---
PG Post Operative Report Pre & Post Diagnosis Operation Date: 03/21/24 09:00 Pre-Op Diagnosis: Right Hip Degenerative Joint Disease Post-Op Diagnosis: Right Hip Degenerative Joint Disease I identified the patient and participated in the time-out.: Yes Procedure Operation Date: 03/21/24 09:00 Actual Procedures p Right Anterior Total Hip Arthroplasty(Right) - Reynaldo Aguilera DO Surgeon Reynaldo Aguilera DO Window Cleaner Reynaldo Huang PA-C Estimated Blood Loss 200 Findings Consistent with Post-Op Diagnosis Specimens Right femoral head Description of Procedure Implants used I used a ZimmerBiomet total hip arthroplasty system with a size 3 standard offset Avenir Complete stem, a 52 mm G7 cup with a 25mm screw, an E1 polyet hylene liner, a 36 mm ceramic head with a -3.5 neck. Zelda arrived at the hospital for the above procedure. She was seen in the preoperative holding area and the operative extremity was identified and signed. She was given a spinal anesthetic, a preoperative antibiotic, and TXA. She was then taken back to the operating room and laid on the table in the supine position. She was given basic sedation. The operative leg was secured to a Puristst leg positioner. The hip was then prepped and draped in sterile fashion. A timeout was done and the patient and the operative extremity was properly identified. An anterior approach was used. Dissection was taken down through the fascia and the tensor muscle belly was retracted laterally and the rectus was retracted medially. The circumflex vessels were identified and ligated. The capsule was then incised and tagged for later repair. The femoral neck was then cut and the femoral head was removed. The acetabulum was exposed. Time was spent doing a complete circumferential labral release. Sequential reaming of the acetabulum up to a size 51 reamer was done. Final reamings were done under fluoroscopy to ensure appropriate version. A Biomet 52 mm G7 cup was then impacted into place. A single 25 mm screw was placed. The E1 polyethylene liner was then snapped into place. Surrounding soft tissues were then injected with 100 cc of an orthopedic pain control cocktail. The proximal femur was then exposed. Sequential broaching up to a size 3 broach was done. Off that broach a size 36 head with a -3.5 neck was trialed. The hip was reduced and fluoroscopic images showed anatomic alignment of the implants in acceptable length. The broach was removed. The final size 3 standard Avenir Complete stem was then impacted into place. A ceramic 36 mm head with a -3.5 neck was then impacted onto the stem and the hip was reduced. Final fluoroscopic images showed anatomic alignment of the hip. The capsule was then closed with #1 Vicryl suture. A dilute betadyne lavage was then done for 3 minutes. The joint was then irrigated with normal saline solution. The fascia was closed with #1 PDS suture. Skin was closed with 2-0 Vicryl, kashif, and a Silverlon dressing. She was then transferred to a hospital bed and taken to the post anesthesia care unit in stable condition. She tolerated the procedure well. Reynaldo Huang PA-C, was present for the entire procedure. He was critical for patient positioning, prepping, draping, retraction exposure, wound closure and application of sterile dressing. I attest to the content of the Intraoperative Record and any orders documented therein. Any exceptions are noted below.
--- NOTE | 2024-03-21 11:03 | Fluoroscopy Report ---
FL hip RT 1V CLINICAL HISTORY: RIGHT ANTERIOR HIP TECHNIQUE: 1 views were obtained with the C-arm in the OR with the above procedure. Total fluoroscopy time was 15.0 seconds. Radiation dose was 1.33 mGy. Comparison: Comparison is made to hip radiograph 01/27/2024 FINDINGS/IMPRESSION: Intraoperative images were obtained of right anterior total hip arthroplasty. Please correlate with intraoperative fluoroscopy and operative report. ACT 112: Negative or not required by law. Electronically signed by: Keo Gunn M.D. 03/21/2024 11:01 AM
--- NOTE | 2024-03-21 11:31 | XRay Report ---
AP PELVIS, CROSSTABLE LATERAL RIGHT HIP History: Right total hip arthroplasty. Degenerative arthritis. Postop. FINDINGS: The patient is status post a right total hip arthroplasty. The hardware is intact. No fract ure or dislocation. Skin kashif are in place. Evidence for a prior left total hip arthroplasty. IMPRESSION: Right total hip arthroplasty. No evidence for hardware complication ACT 112: Negative or not required by law. Electronically signed by: Matthew Padilla M.D. 03/21/2024 11:30 AM
--- NOTE | 2024-03-21 11:43 | Anesthesiology Progress Note ---
Date of Service March 21, 2024 Anesthesia Post Procedure Vital Signs Vital Signs: Temp Pulse Resp BP Pulse Ox O2 Del Method O2 Flow Rate 03/21/24 11:40 36.4 C L 69 18 134/66 93 Nasal Cannula 2 03/21/24 11:30 70 19 112/62 94 Nasal Cannula 2 03/21/24 11:20 73 23 118/60 91 Room Air 03/21/24 11:10 75 20 126/76 96 Oxymask 4 03/21/24 11:00 74 13 97/58 L 96 Oxymask 4 03/21/24 10:53 36.3 C L 77 23 112/56 L 94 Oxymask 4 03/21/24 09:01 37.0 C 70 22 161/83 H 95 Room Air Pain Intensity Right Hip: Pain Intensity: 0 Transfer of Care Handoff Completed per policy Notes Mental Status: alert / awake / arousable and participated in evaluation Patient Amnestic to Procedure: Yes Nausea / Vomiting: adequately controlled Pain: adequately controlled Airway Patency, RR, SpO2: stable & adequate BP & HR: stable & adequate Hydration State: stable & adequate Neuraxial Anesthesia: was administered and sensory block is resolving Anesthetic Complications: no major complications apparent and Pt Satisfied with anesthetic care
[2024-03-21] MEDS ORDERED: oxyCODONE HCL IR 5 MG TAB (IMMEDIATE RELEASE) PO PRN (12:05)
[2024-03-21] MEDS ORDERED: HYDROmorphone INJ 0.5 MG/0.5 ML SYR IV PRN (12:05)
[2024-03-21] MEDS ORDERED: NALOXONE HCL 0.4 MG/1 ML VIAL/CARP IV PRN (12:05)
[2024-03-21] MEDS ORDERED: METOCLOPRAMIDE HCL INJ 5 MG/ML 2 ML VIAL IV PRN (12:05)
[2024-03-21] MEDS ORDERED: bisacodyL 10 MG SUPP PR PRN (12:05)
[2024-03-21] MEDS ORDERED: MAGNESIUM HYDROXIDE SUSP 30 ML UDC PO PRN (12:05)
[2024-03-21] MEDS: ceFAZolin 2,000 MG/15 ML IV PUSH IV ONE (12:36)
[2024-03-21] MEDS: KETOROLAC TROMETHAMINE 15 MG/ML VIAL IV SCH (13:05)
[2024-03-21] MEDS: SODIUM CHLORIDE 0.9% 1,000 ML IV SCH (13:05)
--- OUTSIDE RECORDS SUMMARY | 2024-03-21 13:48 | External Medical Summary ---
Author Name Unknown Address Unknown Organization : Laboratory Report Ordering Provider Test Date Status ELOY MEDRANO 03/09/2024 16:09:20 Final Observation Date Value Abnormality Reference (Units ) Status Alk Phos 03/09/2024 16:09:20 141 37-153 (U/L) Final INTESTINAL ISOENZYMES 03/09/2024 16:09:20 33 Above high normal 1-24 (%) Final Increased intestinal alkalin e phosphatase can be
seen in blood group O and B secretors and after
fatty meals. Alk Phos, bone / Alk Phos, total 03/09/2024 16:09:20 25 Below low normal 28-66 (%) Beti l LIVER ISOENZYMES 03/09/2024 16:09:20 42 25- 69 (%) Final Alk Phos, placental / Alk Phos, total 03/09/2024 16:09:20 0 <=0 (%) Final Alk Phos, macrohepatic / Alk Phos, total 03/09/2024 16:09:20 0 <=0 (%) Final Alkaline phosphatase isoenzymes [Interpretation] in Serum or Plasma Narrative 03/09/2024 16:09:20 DNR Final
Test Performed at:
[facility]
[id number]
[place] [address]
Matthew Choi M.D., Ph.D.,Director of Laboratories Performing Location
--- OUTSIDE RECORDS SUMMARY | 2024-03-21 13:48 | External Medical Summary | Summary of Care ---
Author Name Unknown Organization [facility] Address [address] [facility] [place] [address] Phone [phone] Care Team Providers Care Printing Specialist Name Role Phone Unavailable Primary Care Provider Unavailabl e Reason for Visit * Reason Onset Date Comments Test Results 03/15/2024 Encounter Details Date Type Department Care Team ([facility] st Contact Info) Description 03/15/2024 Telephone Gastroenterology, [address] [address] Katie Bradford CRNP [address] [facility] [place] [address] Test Results Medications Medication Sig Dispensed Refills Start Date End Date Status Atorvastatin Calcium 40 MG Oral Tablet (Lipitor) Take 1 Tablet by mouth in the morning. 0 01/21/2024 Active Chlorthalidone 25 MG Oral Tablet (Hygroton) Take 0.5 Tablets by mouth in the morning. 0 12/23/2023 Active Escitalopram Oxalate 10 MG Oral Tablet (Lexapro) Take 0.25 Tablets by mouth in the morning. 0 01/21/2024 Active Gabapentin 300 MG Oral Capsule (Neurontin) Take 1 Capsule by mouth in the morning. 0 02/16/2024 Active Losartan Potassium 100 MG Oral Tablet (Cozaar) Take 1 Tablet by mouth in the morning. 0 01/21/2024 Active Metoprolol Succinate ER 25 MG Oral Tablet Extended Release 24 Hour (toPROL XL) Take 0.5 Tablets by mouth in the morning. 0 01/21/2024 Active Pantoprazole Sodium 40 MG Oral Tablet Delayed Release (Protonix) Take 1 Tablet by mouth in the morning. 0 01/21/2024 Active Potassium Chloride 10 MEQ Oral Packet Take by mouth. 0 Activ e Apixaban 5 MG Oral Tablet (Eliquis) Take 1 Tablet by mouth in the morning and 1 Tablet before bedtime. 0 Active documented as of this encounter (statuses as of 03/15/2024) Active Problems No known active problems documented as of this encounter (statuses as of 03/15/2024) Social History Tobacco Use Types Packs/Day Years Used Date Smoking Tobacco: Never Assessed Sex and Gender Information Value Date Recorded Sex Assigned at Not on file Gender Identity Not on file Sexual Orientation Not on file documented as of this encounter Miscellaneous Notes * Telephone Encounter - Mariah Villela RN - 03/15/2024 12:07 PM EDT Pt notified. No questions. * Telephone Encounter - Mariah Villela RN - 03/15/2024 12:07 PM EDT ----- Message from RONALD Landa sent at 03/15/2024 11:48 AM EDT ----- Please let her know the repeat alk phos was normal but there were higher levels of intestinal isoenzymes. She should keep the egd/eus for evaluation RONALD Vogel 03/15/2024 11:48 AM documented in this encounter Plan of Treatment Upcoming Encounters Date Type Department Care Team (Latest Contact Info) Description 07/06/2024 3:00 PM EDT Office Visit Gastroenterology , [facility] [address] [place] [address] [address] Susan Fuchs CRNP [address] [place] [address] 08/12/2024 9:30 AM EDT Hospital Encounter [facility]O [facility], Endoscopy Room [facility] [address] [place] [address] Brigid Martin MD [address] [place] [address] 08/12/2024 9:30 AM EDT - 08/12/2024 10:00 AM EDT Surgery ENDO [facility], Endoscopy Room [facility] [address] [place] [phone] Brigid Martin MD [address] [place] [address] COLONOSCOPY FLEXIBLE PROXIMAL DIAGNOSTIC 08/18/2024 9:00 AM EDT Hospital Encounter ENDO [facility], Endoscopy Room [facility] [address] [place] [address] Cynthia Couch, DO [address] [place] [address] 08/18/2024 9:00 AM EDT - 08/18/2024 10:00 AM EDT Surgery ENDO [facility], Endoscopy Room [facility] [address] [place] [address] Cynthia Couch, DO [address] [place] [address] ESOPHAGOGASTRODUODENOSCOPY (EGD), FLEXIBLE, TRANSORAL, ENDOSCOPIC ULTRASOUND Scheduled Procedures Name Priority Associated Diagnoses Date/Ti me COLONOSCOPY FLEXIBLE PROXIMA L DIAGNOSTIC Change in bowel habits Pain of upper abdomen Common bile duct dilation 08/12/2024 9:30 AM EDT ESOPHAGOGASTRODUODENOSCOPY ( EGD), FLEXIBLE, TRANSORAL, ENDOSCOPIC ULTRASOUND Change in bowel habits Pain of upper abdomen Common bile duct dilation 08/18/2024 9:00 AM EDT ESOPHAGOGASTRODUODENOSCOPY ( EGD), FLEXIBLE, TRANSORAL, DIAGNOSTIC Change in bowel habits Pain of upper abdomen Common bile duct dilation 08/18/2024 9:00 AM EDT Health Maintenance Due Date Last Done Comments Lipid Panel 1955 Depression Screening 1967 Hepatitis C Screening 1973 DTaP,Tdap,and Td Vaccines (1 - Tdap) 1974 Mammogram 1995 Cologuard 2000 Colonoscopy 2000 Colorectal Cancer Screening 2000 Fecal Occult Blood Test 2000 Sigmoidoscopy 2000 Zoster Vaccines (1 of 2) 2005 DXA Scan 2020 Pneumococcal Vaccine: 65+ Years (1 of 1 - PCV) 2020 COVID-19 Vaccine (4 - 2022-2 4 season) 2023 10/21/2021, 02/05/2021, 01/15/2021 Influenza Vaccine (FLU shot) (Season Ended) 2024 GARDASIL-HPV IMMUNIZATION SERIES Aged Out No longer eligible b ased on patient's age to complete this topic Hepatitis B Aged Out No longer eligi ble based on patient's age to complete this topic MENINGOCOCCAL (MENACTRA/MENVEO) Aged Out No longer eligible b ased on patient's age to complete this topic documented as of this encounter Medical Devices Not on filedocumented as of this encounter
--- OUTSIDE RECORDS SUMMARY | 2024-03-21 13:48 | External Medical Summary | Summary of Care ---
Author Name Unknown Organization [facility] Address [address] [place] [address] Phone [phone] Care Team Providers Care Back End Architect Name Role Phone Unavailable Primary Care Provider Unavailabl e Reason for Visit * Reason Comments Outpatient Testing Encounter Details Date Type Department Care Team (Late st Contact Info) Description 03/09/2024 4:40 PM EDT Laboratory Laboratory, [facility] [address] [place] [address] [facility] [address] [place] [address] Change in bowel habits; Pain of upper abdomen; Common bile duct dilation; Elevated alkaline phosphatase level Medications Medication Sig Dispensed Refills Start Date [...] as of this encounter (statuses as of 03/09/2024) Active Problems No known active problems documented as of this encounter (statuses as of 03/09/2024) Social History Tobacco Use Types Packs/Day Years Used Date Smoking Tobacco: Never Assessed Sex and Gender Information Value Date Recorded Sex Assigned at Not on file Gender Identity Not on file Sexual Orientation Not on file documented as of this encounter Plan of Treatment Upcoming Encounters Date Type Department Care Team (Latest Contact Info) Description 08/12/2024 9:25 AM EDT Hospital Encounter ENDO [facility], Endoscopy Room [facility] [address] [place] [phone] Brigid Martin MD [address] [place] [address] 08/12/2024 9:25 AM EDT - 08/12/2024 9:55 AM EDT Surgery ENDO [facility], Endoscopy Room [facility] [address] [place] [address] Brigid Martin MD [address] [place] [address] COLONOSCOPY FLEXIBLE PROXIMAL DIAGNOSTIC 08/18/2024 9:00 AM EDT Hospital Encounter ENDO [facility], Endoscopy Room [facility] [address] [place] [phone] Cynthia Couch DO [address] [place] [address] 08/18/2024 9:00 AM EDT - 08/18/2024 10:00 AM EDT Surgery ENDO [facility], Endoscopy Room [facility] [address] [place] [phone] Cynthia Couch, DO [address] [place] [address] ESOPHAGOGASTRODUODENOSCOPY (EGD), FLEXIBLE, TRANSORAL, ENDOSCOPIC ULTRASOUND Pending Results Name Type Priority Associated Diagnoses Date /Time HEPATIC FUNCTION PANEL Lab Routine Change in bowel habits Pain of upper abdomen Common bile duct dilation Elevated alkaline phosphatase level 03/09/2024 4:09 PM EDT ALKALINE PHOSPHATASE ISOENZYMES Lab Routine Change in bowel habits Pain of upper abdomen Common bile duct dilation Elevated alkaline phosphatase level 03/09/2024 4:09 PM EDT Scheduled Procedures Name Priority Associated Diagnoses Date/Ti me COLONOSCOPY FLEXIBLE PROXIMA L DIAGNOSTIC Change in bowel habits Pain of upper abdomen Common bile duct dilation 08/12/2024 9:25 AM EDT ESOPHAGOGASTRODUODENOSCOPY ( EGD), FLEXIBLE, TRANSORAL, [...] Not on filedocumented as of this encounter Visit Diagnoses Diagnosis Change in bowel habits Other symptoms involving digestive system Pain of upper abdomen Abdominal pain, other specified site Common bile duct dilation Other specified disorders of biliary tract Elevated alkaline phosphatase level Other nonspecific abnormal serum enzyme levels Change in bowel habits Other symptoms involving digestive system Pain of upper abdomen Abdominal pain, other specified site Common bile duct dilation Other specified disorders of biliary tract Change in bowel habits Other symptoms involving digestive system Pain of upper abdomen Abdominal pain, other specified site Common bile duct dilation Other specified disorders of biliary tract documented in this encounter
--- OUTSIDE RECORDS SUMMARY | 2024-03-21 13:48 | External Medical Summary ---
Author Name Unknown Address Unknown Organization [id number]:[facility] [place] [address] [place] [address] Laboratory Report Ordering Provider Test Date Status ELOY MEDRANO 03/09/2024 16:09:20 Final Observation Date Value Abnormality Reference (Units ) Status Albumin 03/09/2024 16:09:20 4.1 3.8-5.0 (g/dL) Final AST (Aspartate aminotransferase) 03/09/2024 16:09:20 28 10-35 (U/L) Final Alk Phos 03/09/2024 16:09:20 167 Above high normal 35-130 (U/L) Final ALT (Alanine aminotransferase) 03/09/2024 16:09:20 25 10-35 (U/L) Final Bilirubin, Total 03/09/2024 16:09:20 0.4 <=1.2 (mg/dL) Final Bilirubin, Direct 03/09/2024 16:09:20 <0.2 0.0-0.3 (mg/dL) Final Protein 03/09/2024 16:09:20 6.2 6.0-8.3 (g/dL) Final Performing Location [facility] [place] [address] [place] [address]
--- OUTSIDE RECORDS SUMMARY | 2024-03-21 13:48 | External Medical Summary | Summary of Care ---
Author Name Unknown Organization [facility] Address [address] [facility] [address] Phone [phone] Care Team Providers Care Orange Picker Machine Operator Name Role Phone Unavailable Primary Care Provider Unavailabl e Reason for Referral * Evaluate & Treat - Unlimited Visits (Within 10 days (routine)) - Pending Review Specialty Diagnoses / Procedures Referred By Demarco garcia Referred To Contact Gastroenterology Diagnoses Generalized postprandial abdominal pain Ozzie Hull PA-C [employer] [place] [address] Referral ID Status Reason Start Date Expiration Date Visits Requested Visits Authorized [id number] Pending Review Specialty Services Required 02/26/[phone] Question Answer Referral Priority Within 10 days (routine) Where should this appointment be scheduled? [facility] For what condition is the patient being referred? All Gastro Conditions Comments Persistent severe postprandial lower abdominal pain Encounter Details Date Type Department Care Team ([facility] st Contact Info) Description 02/26/2024 Orders Only Access Center, [address] *DO NOT REMOVE THIS DEPARTMENT* [place] [address] Request, External Referral Generalized postprandial abdominal pain* Social History Tobacco Use Types Packs/Day Years Used Date Smoking Tobacco: Never Assessed Sex and Gender Information Value Date Recorded Sex Assigned at Not on file Gender Identity Not on file Sexual Orientation Not on file documented as of this encounter Plan of Treatment Scheduled Referrals Name Type Priority Associated Diagnoses Orde r Schedule ADULT GASTROENTEROLOGY REFERRAL OP Referral Within 10 days (routine) Generalized postprandial abdominal pain Ordered: 02/26/2024 Health Maintenance Due Date Last Done Comments Lipid Panel 1955 Depression Screening 1967 Hepatitis C Screening 1973 DTaP,Tdap,and Td Vaccines (1 - Tdap) 1974 Mammogram 1995 Cologuard 2000 Colonoscopy 2000 Colorectal Cancer Screening 2000 Fecal Occult Blood Test 2000 Sigmoidoscopy 2000 Zoster Vaccines (1 of 2) 2005 DXA Scan 2020 Pneumococcal Vaccine: 65+ Ye ars (1 of 1 - PCV) 2020 COVID-19 Vaccine ( - 2022-2 4 season) 2023 Influenza Vaccine (FLU shot) (Season Ended) 2024 GARDASIL-HPV IMMUNIZATION SERIES Aged Out No longer eligible based on patient's age to complete this topic Hepatitis B Aged Out No longer eligi ble based on patient's age to complete this topic MENINGOCOCCAL (MENACTRA/MENVEO) Aged Out No longer eligible based on patient's age to complete this topic documented as of this encounter Medical Devices Not on filedocumented as of this encounter Visit Diagnoses Diagnosis Generalized postprandial abdominal pain- Primary Abdominal pain, generalized documented in this encounter
--- OUTSIDE RECORDS SUMMARY | 2024-03-21 13:48 | External Medical Summary | Summary of Care ---
Author Name Unknown Organization [facility] Address [address] [facility] [place] [address] Phone [phone] Care Team Providers Care Planning Division Superintendent Name Role Phone Unavailable Primary Care Provider Unavailabl e Reason for Visit * Reason Onset Date Comments Test Results 03/11/2024 Encounter Details Date Type Department Care Team (Late st Contact Info) Description 03/11/2024 Telephone Gastroenterology, [facility] [address] [place] [address] Katie Bradford CRNP [address] [place] [address] Test Results Medications Medication Sig Dispensed Refills [...] as of this encounter (statuses as of 03/11/2024) Active Problems No known active problems documented as of this encounter (statuses as of 03/11/2024) Social History Tobacco Use Types Packs/Day Years Used Date Smoking Tobacco: Never Assessed Sex and Gender Information Value Date Recorded Sex Assigned at Not on file Gender Identity Not on file Sexual Orientation Not on file documented as of this encounter Miscellaneous Notes * Telephone Encounter - Darcie Ibrahim RN - 03/11/2024 2:48 PM EDT This has been fully explained to the patient, who indicates understanding. Transferred to scheduling to make a 3 month follow up. * Telephone Encounter - Darcie Ibrahim RN - 03/11/2024 2:44 PM EDT ----- Message from RONALD Landa sent at 03/10/2024 9:35 AM EDT ----- Please let her know the ALKP was still elevated. Will follow the isoenzymes when returns RONALD Vogel 03/10/2024 9:35 AM documented in this encounter Plan of Treatment Upcoming Encounters Date Type Department Care Team (Latest Contact Info) Description 07/06/2024 3:00 PM EDT Office Visit Gastroenterology , [facility] [address] [address] Susan Fuchs CRNP [address] [place] [address] 08/12/2024 9:30 AM EDT Hospital Encounter ENDO [facility], Endoscopy Room [facility] [address] [place] [address] Brigid Martin MD [address] [place] [address] 08/12/2024 9:30 AM EDT - 08/12/2024 10:00 AM EDT Surgery ENDO [facility], Endoscopy Room [facility] [address] [place] [address] Brigid Martin MD [address] [place] [address] COLONOSCOPY FLEXIBLE PROXIMAL DIAGNOSTIC 08/18/2024 9:00 AM EDT Hospital Encounter ENDO [facility], Endoscopy Room [facility] [address] [place] [phone] Cynthia Couch, DO [address] [place] [address] 08/18/2024 9:00 AM EDT - 08/18/2024 10:00 AM EDT Surgery ENDO [facility], Endoscopy Room [facility] [address] [place] [address] Cynthia Couch, DO [address] [place] [address] ESOPHAGOGASTRODUODENOSCOPY (EGD), FLEXIBLE, TRANSORAL, ENDOSCOPIC ULTRASOUND Scheduled [...]
--- OUTSIDE RECORDS SUMMARY | 2024-03-21 13:48 | External Medical Summary | Summary of Care ---
Author Name Unknown Organization [facility] Address [address] [place] [address] Phone [phone] Care Team Providers Care X Ray Nurse Name Role Phone Unavailable Primary Care Provider Unavailabl e Reason for Visit * Reason Comments NEW PATIENT Abdominal pain cat s can report * Evaluate & Treat - Unlimited Visits (Within 10 days (routine)) - Authorized Specialty Diagnoses / Procedures Referred By Demarco garcia Referred To Contact Gastroenterology Diagnoses Generalized postprandial abdominal pain Ozzie Hull PA-C [facility] [place] [address] Referral ID Status Reason Start Date Expiration Date Visits Requested Visits Authorized [id number] Authorized Specialty Services Required 02/26/2024 02/25/2025 [id number] Encounter Details Date Type Department Care Team (Late st Contact Info) Description 03/09/2024 3:00 PM EDT Office Visit Gastroenterology, [facility] [address] [facility] [place] [id number] Katie Bradford CRNP [address] [facility] [place] [id number] Change in bowel habits*; Pain of upper abdomen; Common bile duct dilation; Elevated alkaline phosphatase level; Blood in stool; Intermittent lower abdominal pain Medications Medication Sig Dispensed Refills Start Date [...] MEQ Oral Packet Take by mouth. 0 Ac tive Apixaban 5 MG Oral Tablet (Eliquis) Take 1 Tablet by mouth in the morning and 1 Tablet before bedtime. 0 Active Calcitriol 0.25 MCG Oral Capsule (Rocaltrol) 1 Capsule every other day. 0 01/07/2024 03/09/2024 Discontinued documented as of this encounter (statuses as [...] on file documented as of this encounter Progress Notes * Katie Bradford CRNP - 03/09/2024 3:00 PM EDT Images from the original note were not included. DATE OF SERVICE: 03/09/2024 REFERRING PHYSICIAN: Ozzie Hull PA-C CC: post prandial abd pain Office Visit 03/09/2024 : 68 year old female with history of CKD, HTN, OA, GERD and others below referred for eval of post-prandial abd pain at the request of Ozzie Hull PA-C . Pain started in December. Severe. Constant, associated with fevers, chills, The pain was lower abd, bilateral. Associated with alternating bowel habits. Can have days of diarrhea,constipation. No black stools. Did have a day of bloody mucous stools on a day when pain was terrible. Appetite was low. Seems somewhat better. She has chronic GERD - on PPI for 5 years. Controlsher GERD well. No nausea. No vomiting. Weight stable. No fever, chills, CP, SOB. GI labs: tbili 0.6, ast 19, alt 22, alkp 153 wbc 6, hgb 12.8, hct 40, plt 207 CTAP 2023: Colonoscopy 2018: request records from [facility] - this showed polyps Family history of GI malignancy: none Family history of celiac: none Family history of IBD: none No past medical history on file. No family history on file. No past surgical history on file. Social History Tobacco Use Smoking status: Not on file Smokeless tobacco: Not on file Substance Use Topics Alcohol use: Not on file Drug use: Not on file Review of patient's allergies indicates: Not on File Current Outpatient Medications Medication Sig Dispense Refill Atorvastatin Calcium 40 MG Oral Tablet (Lipitor) Take 1 Tablet by mouth in the morning. Calcitriol 0.25 MCG Oral Capsule (Rocaltrol) 1 Capsule every other day. Chlorthalidone 25 MG Oral Tablet (Hygroton) Take 0.5 Tablets by mouth in the morning. Escitalopram Oxalate 10 MG Oral Tablet (Lexapro) Take 0.25 Tablets by mouth in the morning. Gabapentin 300 MG Oral Capsule (Neurontin) Take 1 Capsule by mouth in the morning. Losartan Potassium 100 MG Oral Tablet (Cozaar) Take 1 Tablet by mouth in the morning. Metoprolol Succinate ER 25 MG Oral Tablet Extended Release 24 Hour (toPROL XL) Take 0.5 Tablets by mouth in the morning. Pantoprazole Sodium 40 MG Oral Tablet Delayed Release (Protonix) Take 1 Tablet by mouth in the morning. Potassium Chloride 10 MEQ Oral Packet Take by mouth. Apixaban 5 MG Oral Tablet (Eliquis) Take 1 Tablet by mouth in the morning and 1 Tablet before bedtime. No current facility-administered medications for this visit. REVIEW OF SYSTEMS: All other findings negative except as noted in HPI. EXAM: BP 148/71 pulse 73 wt 162 temp 95 GENERAL: Well developed and well nourished in no acute distress. SKIN: No rashes, ulcers, jaundice or spider angiomata. HEENT: Normocephalic, sclera clear, NECK: Supple, LUNGS: Clear to auscultation bilaterally, no respiratory distress or accessory muscles used. HEART: Regular rate & rhythm, no murmurs and no gallops. ABDOMEN: Normal bowel sounds, soft and nontender, no masses or hepatosplenomegaly. EXTREMITIES: No palmar erythema, no ankle edema, NEURO: No lateralizing findings. Sensory/Motor grossly normal. DIAGNOSTIC TEST: Hepatic function panel Alkaline phosphatase isoenzymes Egd, w/endoscopic us Colonoscopy, diagnostic (rectum) ASSESSMENT AND PLAN: 68 year old female with history of abd pain, change in bowel habits, episode of bloody mucous in December that prompted ED visit, CT at ED in January w/ CBD dilation 7mm, contracted GB, diverticulosis w/ prominence through descending and colon and small retroperitoneal lymph and mesenteric lymph enlargement - Elevated LFTs and bile duct dilation - Labs - Arrange EGD/EUS - Abd pain, change in bowel habits, bloody stool w/ mucous - Arrange colonoscopy - Small retroperitoneal lymph and mesenteric lymph enlargement - Pending on results of colonoscopy, needs repeat CT scan - ED for emergencies - Please call with any questions or concerns RETURN TO CLINIC: 3 months I spent a total of 45 minutes on the date of service in review of patient's record, and previously obtained information in person and appropriate medical visit, discussion and education of plan, withpatient and/or caregiver, placing orders for tests/referral/procedures as medically necessary and documentation of pertinent clinical information in patient's medical records for their visit today. RONALD Vogel 03/09/2024 3:36 PM documented in this encounter Nursing Notes * Madison Chaparro RN - 03/09/2024 3:15 PM EDT Patient identified by full name and date of Chief Complaint Patient presents with NEW PATIENT Abdominal pain cat scan report documented in this encounter Plan of Treatment Upcoming Encounters Date Type Department Care Team (Latest Contact Info) Description 08/12/2024 9:25 AM EDT Hospital Encounter [facility]O [facility], Endoscopy Room [facility] [address] [place] [address] Brigid Martin MD [address] [place], [place] [address] 08/12/2024 9:25 AM EDT - 08/12/2024 9:55 AM EDT Surgery ENDO [facility], Endoscopy Room [facility] [address] [place] [id number] Brigid Martin MD [address] [place] [address] COLONOSCOPY FLEXIBLE PROXIMAL DIAGNOSTIC 08/18/2024 9:00 AM EDT Hospital Encounter ENDO [facility], Endoscopy Room [facility] [address] [place] [address] Izaiah Srinivasan MD [address] [place] [address] 08/18/2024 9:00 AM EDT - 08/18/2024 10:00 AM EDT Surgery ENDO [facility], Endoscopy Room [facility] [address] [place] [id number] Cynthia Couch DO [address] [place] [address] ESOPHAGOGASTRODUODENOSCOPY (EGD), FLEXIBLE, TRANSORAL, ENDOSCOPIC ULTRASOUND Scheduled Orders Name Type Priority Associated Diagnoses Orde r Schedule EGD, W/ENDOSCOPIC US Procedures Routine Change in bowel habits Pain of upper abdomen Common bile duct dilation Ordered: 03/09/2024 COLONOSCOPY, DIAGNOSTIC (RECTUM) Procedures Routine Change in bowel habits Pain of upper abdomen Common bile duct dilation Ordered: 03/09/2024 HEPATIC FUNCTION PANEL Lab Routine Change in bowel habits Pain of upper abdomen Common bile duct dilation Elevated alkaline phosphatase level Expected: 03/09/2024, Expires: 03/09/2025 ALKALINE PHOSPHATASE ISOENZYMES Lab Routine Change in bowel habits Pain of upper abdomen Common bile duct dilation Elevated alkaline phosphatase level Expected: 03/09/2024, Expires: 03/09/2025 Scheduled Procedures Name Priority Associated Diagnoses Date/Ti [...] encounter Visit Diagnoses Diagnosis Change in bowel habits- Primary Other symptoms involving digestive system Pain of upper abdomen Abdominal pain, other specified site Common bile duct dilation Other specified disorders of biliary tract Elevated alkaline phosphatase level Other nonspecific abnormal serum enzyme levels Blood in stool Intermittent lower abdominal pain Change in bowel habits Other symptoms involving [...]
[2024-03-21] MEDS: NICOTINE 21 MG/24 HR TDSY TD SCH (17:43)
[2024-03-21] MEDS: SENNA 8.6 MG TAB PO SCH (21:07)
[2024-03-21] MEDS: DOCUSATE SODIUM 100 MG CAP PO SCH (21:07)
[2024-03-21] MEDS: ESCITALOPRAM OXALATE 10 MG TAB PO SCH (21:08)
--- NOTE | 2024-03-22 06:48 | Orthopedic Progress Note ---
Date of Service March 22, 2024 Assessment & Plan (1) Status post right hip replacement: Overall she is doing very well. She is not having much pain in the right hip. She will be seen by physical therapy today for ambulation and range of motion exercises. She is on Eliquis for DVT prophylaxis. She can be discharged home later today. She will follow-up orthopedics in 2 weeks. Billy Ndiaye was seen and examined at bedside this morning. Overall she is doing very well. She is not having much pain in the right hip. She has been up and ambulating to the bathroom. She has no complaints.. Review of Systems All systems reviewed & are unremarkable except as noted in HPI & below. Physical Exam On physical examination of the right hip, the dressing is clean and dry. She is sitting in a chair at bedside. She is neurovascular intact.. Results & Data Results & Data Laboratory Results . Diagnostic Findings Postoperative x-rays of the right hip show the prosthesis to be in anatomic alignment without any evidence of fracture complication, or loosening.. PG Care Time/CCT Total # of Minutes Spent Total Time Spent with Patient: Total time spent is greater than 50% in coordination of care (as documented) at patient's floor/unit and/or counseling patient: Coding Level of Care Code 11484 Post Operative Follow-Up Diagnoses Status post right hip replacement Z96.641
--- NOTE | 2024-03-22 06:49 | Discharge Summary ---
Date of Service March 22, 2024 Admission HPI (Per Admitting) Zelda is a pleasant 68-year-old female who has been dealing with chronic increasing right hip pain. I did a left hip replacement on her in the past and she has done very well with that. Unfortunately, she is struggling with her right hip. It is causing her significant groin pain. X-rays and clinical examination been diagnostic for advanced arthritis of the right hip. After failing conservative treatment, she has elected proceed with a right total hip arthroplasty. Admission Exam (Per Admitting) On physical examination of the right hip, she has decreased range of motion. She has pain with internal and external rotation. All of her pains located in her groin.. Principal Diagnosis Same as "Discharge Diagnosis" noted below under Discharge Instructions. Discharge Exam On physical examination of the right hip, the dressing is clean and dry. She is sitting in a chair at bedside. She is neurovascular intact.. Discharge Data Procedures Performed Operation Date: 03/21/24 09:00 Actual Procedures p Right Anterior Total Hip Arthroplasty(Right) - Reynaldo Aguilera DO Ordered Studies 03/21/24 09:00 FL hip RT 1V Routine Hospital Course (1) Status post right hip replacement: On March 21, 2024 Zelda arrived at [facility] and underwent a right hip replacement without complication. She had a spinal anesthetic. Postoperatively she was started back on Eliquis for DVT prophylaxis and transferred to the general orthopedic floors. Her hospital course was uneventful. On postop day #1, her vital signs were stable and her pain was well-controlled. She was able to participate well with physical therapy doing ambulation and range of motion exercises. She was then discharged to home. She will follow-up with orthopedics in 2 weeks. PG Care Time/CCT Total # of Minutes Spent Total Time Spent with Patient: Total time spent is greater than 50% in coordination of care (as documented) at patient's floor/unit and/or counseling patient: Discharge Plan Discharge Items Patient Disposition: Home - Self-Care Reason For Visit: Right Hip Degenerative Joint Disease Discharge Diagnosis: Right hip replacement Activity: Per Instructions section Non-emergency contact: Surgeon Call non-emergency contact if: your wound has increased redness and your wound has increased drainage Follow-up/Referrals: Mitra Dodd PA-C [Primary Care Provider] - Diet: Regular Addtl Attending Provider Instructions: Activity and Therapy Recommendations: * If you are using [facility] then therapy will be provided at your home until they feel you have accomplished all of your goals. * If you are using [facility] then Physical Therapy will be provided until they feel you are ready to start Outpatient Physical Therapy. * If you are not using home therapy then Outpatient Physical Therapy should start about 3-5 days from your day of surgery. Therapy will last about 6-10 weeks * You were shown a series of exercises in the hospital. Do these exercises three times each day including the exercises you were shown in physical therapy. * Get up and walk several times each day.~ For the first four weeks, try not to stand or walk for more than one hour at a time. If you do stand or walk for more than one hour, you will not hurt anything, but your leg will likely swell.~~ * As you feel comfortable, you may change from the walker or crutches to a cane and~then to independent walking. Medications: * Narcotic You will likely be sent home from the hospital with a prescription for the narcotic pain medication that worked best throughout your stay. * Cefadroxil -take the antibiotic twice a day for 10 days to help prevent infection. * Eliquis -continue taking your Eliquis as prescribed. * Other medications may be prescribed for specific circumstances. If you have any questions, please call the office at . * Resume previous home medications unless otherwise instructed TEDs/Elastic Stockings: The white elastic stockings help limit swelling and prevent blood clots from forming in your legs. The more you wear them, the more they work. Wear them for six weeks. Dressing Care: Leave the Silverlon dressing in place for 7 days. After 7 days you may remove the dressing. If the incision is not draining then you may leave the kashif open to air. If there is a little bit of drainage or if the kashif are getting stuck on your clothing then cover the incision with a dry dressing. The kashif will be removed at your 2 week follow-up appointment. Showering: You may shower with the Silverlon dressing in place. Do not let the shower spray hit the dressing directly. Pat the Silverlon dressing dry. If the dressing becomes wet underneath, then simply remove the dressing. Keep the incision dry until you are 7 days out from the day of surgery. After 7 days you may remove the Silverlon dressing and shower with the kashif exposed. Let soapy water run over the kashif and pat them dry. Do not scrub or soak the incision. Things To Watch For: * Drainage from the incision site that occurs more than one week after your surgery. * Increased redness at the incision site. * Fever above 102 degrees Fahrenheit. * Unusual chest pain or shortness of breath. * Call [facility] at with any of the above problems Follow-Up Visit: Follow-up with Dr. Aguilera's PA (Reynaldo Huang) 2-3 weeks after your day of surgery. He will remove your kashif and answer any questions. If you have any additional questions or concerns, Dr Aguilera is usually in the office at the same time and will be available An appointment was probably scheduled when you signed-up for surgery in the office. If you have any questions call Office Instructions: More detailed instructions as well as Frequently Asked Questions were provided in a folder by our office when you signed-up for surgery. Please review these instructions when you get home. If you have any further questions or concerns, please feel free to call the office at [phone] Pending Studies at Discharge: No Stand-Alone Forms: My [facility], Smoking Cessation Medications and DC Order Prescriptions: New oxycodone 5 mg Tablet 5 mg PO Q4H PRN (Reason: pain) Qty: 30 0RF cefadroxil 500 mg capsule 500 mg PO BID 10 Days Qty: 20 0RF Continued pantoprazole [Protonix] 40 mg tablet,delayed release (DR/EC) 40 mg PO QAM calcitriol [Rocaltrol] 0.25 mcg capsule 0.25 mcg PO Q OTHER DAY atorvastatin [Lipitor] 40 mg tablet 40 mg PO DAILY potassium chloride 10 mEq capsule, extended release 10 meq PO QAM chlorthalidone 25 mg Tablet 12.5 mg PO QAM gabapentin 300 mg Capsule 300 mg PO HS metoprolol succinate [Toprol XL] 25 mg Tablet Extended Release 24 Hr 12.5 mg PO QAM losartan 100 mg Tablet 100 mg PO QAM escitalopram oxalate [Lexapro] 5 mg Tablet 2.5 mg PO HS Eliquis 5 mg Tablet 5 mg PO BID Multi Vitamin 1 tab PO QAM Discharge Orders: Discharge Order (Routine); Ordered 03/22/24 Ordered By: Reynaldo Aguilera Admission Data Admit Date/Time: 03/21/24 10:54 Attending Provider: Reynaldo Aguilera Admit Provider: Reynaldo Aguilera Primary Care Provider: Mitra Dodd
[2024-03-22] MEDS: APIXABAN 5 MG TABLET PO SCH (07:55)
[2024-03-22] MEDS: METOPROLOL SUCC 25MG EXT REL TAB PO SCH (07:55)
[2024-03-22] MEDS: ATORVASTATIN 40 MG TAB PO SCH (07:56)
[2024-03-22] MEDS: LOSARTAN POTASSIUM 50 MG TAB PO SCH (07:56)
[2024-03-22] MEDS: CHLORTHALIDONE 25 MG TAB PO SCH (07:57)
[2024-03-22] MEDS: dexAMETHasone 4 MG TAB PO SCH (07:57)
[2024-03-22] MEDS: POTASSIUM CHLORIDE 10 MEQ TABCR PO SCH (07:58)
[2024-03-22] MEDS ORDERED: NICOTINE 21 MG/24 HR TDSY TD SCH (09:00)
[2024-03-22] MEDS: MULTIVITAMIN TAB PO SCH (09:21)
== END 2024-03-22 10:42 | disposition home or self-care (01) ==
LOC: ASU 08:36 → 3E 08:36